=== PATIENT | female | born 1980 | race Caucasian/White ===

== ENCOUNTER 2018-07-20 09:30 | Emergency (ER) | payer MEDICAID, SELFPAY ==
[2018-07-20 09:31] VITALS: BP 135/82; PULSE 72; RESP 17; TEMP 36.7; O2SAT 99; BMI 31.0
--- NOTE | 2018-07-20 09:46 | US_ITS ---
STUDY: ABDOMINAL ULTRASOUND - RIGHT UPPER QUADRANT REASON FOR VISIT: Female, 37 years old. P Abdominal Pain US - GB, Liver, Abdomen -- EPIGASTRIC PAIN X 5 DAYS. TECHNIQUE: Ultrasound evaluation of the right upper quadrant was performed with real-time and static zuniga-scale imaging. TECHNICAL QUALITY: Adequate. COMPARISON: None. FINDINGS: Liver: The liver measures 16.3 cm. There is normal echogenicity of the liver. The bile ducts are within normal limits. There is hepatic color flow. The direction of portal flow is hepatopetal. There is no demonstrated mass lesion. Gallbladder: Normal distended gallbladder. The gallbladder wall measures 2.8 mm. There is a negative sonographic Helton's sign. There is no pericholecystic fluid. There is a solitary echogenic gallstone within the gallbladder. Common Bile Duct (C.B.D.): The common bile duct measures 3.2 mm. Pancreas: Normal size of the head, body of the pancreas. There is normal echogenicity of the pancreas. There is no demonstrated pancreatic mass or cyst. Right Kidney: Normal size of the right kidney. The right kidney measures 11.7 x 4.7 x 3.4 cm. Normal renal cortex. The right cortex measures cm. There is no demonstrated renal mass or cyst. There is no right hydronephrosis. US/Gallbladder IMPRESSION: Cholelithiasis. Electronically Signed: Soledad Duong MD at 11:20 EST Tel , Service support ,
--- NOTE | 2018-07-20 09:48 | ED.VISSUMM ---
- ER Visit Summary Date of Service: 07/20/18 Chief Complaint: Abdominal pain History of Present Illness: The patient is a 37 F presents to the emergency department with intermittent abdominal pain for the past 5 days. She describes a burning stabbing pain in the midepigastric area in the right upper quadrant. She is unsure if it is made worse with food. She was mildly nauseated without vomiting. The pain does not radiate. She denies any chest pain or shortness of breath. States pain worsened today. She she went to urgent care and was sent here for further evaluation. She denies any alcohol use. Only past surgical history is of . She denies any fevers, chills, other systemic symptoms. Physical Examination: Vital signs reviewed General: Well-nourished, well-developed Head: Normocephalic, atraumatic Eyes: Pupils equal and reactive, extraocular muscles intact Neck, supple, no lymphadenopathy Heart: Regular rate and rhythm Respiratory: No distress, clear bilaterally Abdomen: Soft, tender in the midepigastric area into the right upper quadrant without rebound or guarding, nondistended, no peritoneal signs Back: Nontender Extremities: Nontender, no edema, no cords Skin: Normal color no rash Neuro: Alert and oriented, no focal or lateralizing deficits Test Results: [] Emergency Department Course and Treatment: The patient presents with midepigastric pain into her right upper quadrant. She did not have a definitive Helton sign. IV was established. Labs are unremarkable. With analgesics and antiemetics, her symptoms are markedly improved. Patient underwent ultrasound of the right upper quadrant. There is some small gallstones, but no pericholecystic fluid, no dilation of her biliary tree, and no dilation of the wall. Patient was given a GI cocktail. She is resting comfortably. At this time, I am unsure if this is biliary colic versus gastritis or GERD. I am going to treat the patient with Pepcid and antiemetics. She will be given outpatient surgery follow-up. She was counseled on concerning symptoms and reasons to return. She will be discharged home. Treatment Plan: [] Disposition: Discharge Impression: 1. Midepigastric abdominal pain This note was generated with Wavestream dictation software. It may contain incorrect words, spelling, and punctuation that were not noted in review of the chart prior to signing ED Disposition - Plan for ED Patient: Disposition: Home or Assisted Living Chief Complaint: Abd Pain Instructions: ED Abdominal Pain Gallstone Poss Prescriptions: Ondansetron [Zofran Odt] 4 mg PO Q8H PRN PRN #10 tab PRN Reason: Nausea RX: Dicyclomine HCl [Bentyl] 20 mg PO TIDAC #20 cap Famotidine [Pepcid] 20 mg PO BID #28 tab Referrals: Lamont Henley MD [Primary Care Provider] - Gladys Jackson MD [STAFF PHYSICIAN] - 3-5 Days if not improving
[2018-07-20 10:04] LABS: Mucous, Urine 0 SEEN /hpf (<or=2+)
[2018-07-20] MEDS: Morphine 4 MG/ML Syringe IV (10:06)
[2018-07-20] MEDS: 0.9% Normal Saline 1,000 ML 1000 ML IV (10:06)
[2018-07-20] MEDS: Ondansetron 4 MG/2 ML Vial IV (10:07)
[2018-07-20 10:13] LABS: Absolute Lymphocyte Count 1.34 X10^3/ul (0.83-4.51); Absolute Neutrophil Count 5.7 X10^3/uL (2.0-7.7); Basophil# 0.06 X10^3/uL; Basophil% 0.8 % (0-1); Eosinophil# 0.17 X10^3/uL; Eosinophils% 2.2 % (0-5); Hematocrit 37.1 % (37-47); Hemoglobin 12.5 g/dl (12.0-15.0); Lymphocyte # 1.34 X10^3/ul (4.0); Lymphocyte % 17.4 % (19-41); Mean Corp Hgb Conc 33.7 g/gl (32-36); Mean Corpuscular Hgb 27.8 pg (27.0-32.0); Mean Corpuscular Volume 82.4 fL (81-99); Mean Platelet Vol. 10.8 fl (6.2-12.0); Monocyte% 5.2 % (0-10); Neutrophil % 74.1 % (47-70); Platelet Count 215 K/mm3 (150-450); RBC Distribution Width CV 13.4 % (11.6-14.6); RBC Distribution Width SD 39.7 fl (35.1-43.9); White Blood Count 7.7 K/mm3 (4.4-11.0)
[2018-07-20 10:20] LABS: Color, Urine Yellow (Yellow); Glucose, Dipstick Normal (Normal); Ketone-Dipstick Negative (Negative); Leukocyte Esterase-Dipstick 25 /ul (Negative); Nitrite-Dipstick Negative (Negative); Occult Blood-Urine Negative /ul (Negative); Protein-Dipstick Negative (Negative); Specific Gravity, Urine 1.015 (1.002-1.030); Urine Bilirubin Dipstick Negative (Negative); Urine Clarity Sl. Cloudy (Clear); Urine Urobilinogen Normal (Normal); Urine pH 6.5 (5.0 - 8.0)
[2018-07-20 10:21] LABS: POSITIVE COUNT NO; POSITIVE DIFFERENTIAL NO; POSITIVE MORPHOLOGY NO
[2018-07-20 10:22] LABS: AST(SGOT) 21 U/L (15-37); Alanine Aminotransfer ALT/SGPT 26 U/L (13-56); Albumin, Serum 3.9 g/dL (3.2-5.0); Alkaline Phosphatase 80 U/L (45-117); Anion Gap 10 (5-15); BUN 14 mg/dL (7-18); BUN/Creat Ratio 15.2 RATIO (10-20); Bilirubin, Direct 0.17 mg/dL (0.00-0.30); Calcium,Total 8.7 mg/dL (8.5-10.1); Chloride 108 mmol/L (98-107); Creatinine, Serum 0.92 mg/dL (0.55-1.02); EST Glomerular Filtration Rate 72 mL/min (>60); Est Glom Filt Rate - Afr Amer 87 mL/min (>60); Globulin 3.5 g/dL (2.2-4.2); Glucose 112 mg/dL (74-106); Internal QC Validated? YES +Cl - CLEAR BKGD; Lipase 207 U/L (73-393); Pregnancy, Urine Negative Negative; Protein, Total 7.4 g/dL (6.4-8.2); Sodium Level 139 mmol/L (136-145)
[2018-07-20 10:28] LABS: Bacteria 1+ /hpf (None Seen); Red Blood Cells-Urine 0-5 SEEN /hpf (0-5); Squamous Epithelial Cells - UA 5-10 SEEN /hpf (5-10); White Blood Cells 0-5 SEEN /hpf (0-5)
[2018-07-20] MEDS: Mag Hydrox/Al Hydrox/Simeth 30 ML UDC PO (11:40)
[2018-07-20 11:41] VITALS: BP 117/76; PULSE 63; RESP 15; O2SAT 98
== END 2018-07-20 12:20 | disposition home or self-care (01) ==
PROVIDERS: Emergency Provider Emergency Medicine; Family Provider Family Medicine; PCP Family Medicine
DX: K80.70 Calculus of gallbladder and bile duct without cholecystitis without obstruction (principal); R10.13 Epigastric pain; F32.9 Major depressive disorder, single episode, unspecified
CPT/HCPCS: 76705; 80048; 80076; 81001; 81025; 83690; 85025; 96361; 96374; 96375; 99284; J7030; A4216; J2405